=== PATIENT | female | born 1985 | race American Indian/Alaskan Native ===

== ENCOUNTER 2018-06-16 14:26 | Emergency (ER) | payer OTHER, SELFPAY ==
[2018-06-16 14:35] VITALS: BP 120/82; PULSE 85; RESP 20; TEMP 36.7; O2SAT 98
--- NOTE | 2018-06-16 14:38 | DI.RAD.S_ITS ---
PROCEDURE: XR CHEST 2V INDICATIONS: chest pain TECHNIQUE: 2 views of the chest were acquired. COMPARISON: [facility], , CHEST 1 VIEW, 11/08/2016, 17:17. FINDINGS: Surgical changes and devices: None. Lungs and pleura: No pleural effusions or pneumothorax. Lungs are clear. Mediastinum: Mediastinal contours are normal. Heart size is normal. Bones and chest wall: No suspicious bony abnormalities. Soft tissues appear unremarkable. IMPRESSION: No acute cardiopulmonary pathology. Dictated by: Gianluca Workman M.D. on 06/16/2018 at 15:21 Approved by: Gianluca Workman M.D. on 06/16/2018 at 15:21
[2018-06-16 14:57] LABS: Add Manual Diff / Slide Review NO; Basophils Percent Auto 0.5 % (0-2); Eosinophils Percent Auto 1.5 % (2-4); Hematocrit 38.3 % (36-46); Hemoglobin 13.3 g/dL (12.0-16.0); Lymphocytes Percent Auto 25.5 % (25-40); Mean Corpuscular HGB Conc 34.7 % (30-36); Mean Corpuscular Hemoglobin 30.2 PG (26-34); Monocytes Percent Auto 6.6 % (3-14); Neutrophils Absolute Auto 4100 /uL (3000-5900); Neutrophils Percent Auto 65.9 % (50-75); Platelet Count 183 X10^3/uL (150-400); Red Cell Distribution Width 11.9 % (11.6-14.8); White Blood Cell Count 6.2 X10^3/uL (4.5-11.0)
[2018-06-16 15:12] LABS: Alanine Aminotransferase 39 IU/L (9-52); Albumin 4.5 g/dL (3.5-5.0); Albumin Globulin Ratio 1.7 (1.0-2.8); Alkaline Phosphatase 61 U/L (38-126); Aspartate Aminotransferase 31 IU/L (14-36); BUN Creatinine Ratio 15.7 (6-22); Bilirubin Total 0.2 mg/dL (0.2-1.3); Blood Urea Nitrogen 11 mg/dL (7-17); Carbon Dioxide 27 mmol/L (22-32); Chloride 103 mmol/L (98-107); Estimated Glomerular Filt Rate > 60.0 mL/min (>60); Globulin 2.6 g/dL (1.7-4.1); Glucose 95 mg/dL (70-100); HEMOLYSIS < 15 (0-50); Potassium 4.3 mmol/L (3.4-5.1); Sodium 141 mmol/L (137-145); Total Protein 7.1 g/dL (6.3-8.2)
[2018-06-16 15:25] LABS: Troponin I < 0.012 ng/mL (0.01-0.034)
[2018-06-16 16:10] LABS: Amylase 86 U/L (30-110); Lipase 84 U/L (23-300)
--- NOTE | 2018-06-16 16:27 | DI.US.S_ITS ---
PROCEDURE: US ABDOMEN COMPLETE INDICATIONS: RUQ pain TECHNIQUE: Real-time scanning was performed of the abdominal and retroperitoneal organs, with image documentation. COMPARISON: None. FINDINGS: Liver: Liver is normal in size and homogeneous in echotexture. Gallbladder: The gallbladder wall measures 2 mm in diameter. No stones, sludge, pericholecystic fluid, or sonographic Kenny sign. Biliary ducts: Intrahepatic bile ducts are non-dilated. Extrahepatic bile duct caliber measures 5 mm. Normal is 6-7 mm or less in diameter, or 10 mm or less post-cholecystectomy. Pancreas: The pancreas is nonvisualized due to overlying bowel gas. Spleen: Spleen is normal in size and homogeneous in echotexture. Kidneys: Kidneys are normal in size and echotexture. Right kidney measures 9.9 cm long; left kidney measures 10.3 cm long. No hydronephrosis or nephrolithiasis. No solid masses. Aorta: Visualized aorta is normal in caliber at less than 3 cm. Iliacs: Proximal common iliac arteries are normal in caliber at less than 2.5 cm. IVC: The IVC is not visualized due to bowel gas. Miscellaneous: No free abdominal fluid. IMPRESSION: 1. No cholelithiasis or findings to suggest choledocholithiasis or acute cholecystitis. Dictated by: Irma Orellana M.D. on 06/16/2018 at 17:14 Approved by: Irma Orellana M.D. on 06/16/2018 at 17:15
[2018-06-16] MEDS: MAG HYDROX/ALUMINUM/SIMETH SUS 20 ML, LIDOCAINE VISCOUS 2% 15 ML PO (16:44)
[2018-06-16] MEDS: ONDANSETRON 4 MG ODT PO (16:45)
[2018-06-16] MEDS: PROMETHAZINE 6.25 MG/5 ML SYRUP 25 MG PO (18:10)
[2018-06-16] MEDS: PANTOPRAZOLE 20 MG TABLET PO (18:10)
--- NOTE | 2018-06-16 18:18 | PC.NURSE ---
Patient drove self in. Will take promethazine when she gets home for nausea. Patient ok with this plan. Will follow up with PCP if doesn't work for nausea.
--- NOTE | 2018-06-16 18:20 | ED.NAVMDI ---
HPI - Nausea/Vomiting/Diarrhea <MARIANNA James - Last Filed: 06/16/18 23:35> General Chief complaint: Nausea/Vomiting/Diarrhea Stated complaint: chest pains Time Seen by Provider: 06/16/18 15:41 Source: patient Mode of arrival: ambulatory Limitations: no limitations History of Present Illness HPI Narrative: Patient is 32-year-old female who presents with chief complaint of nausea and vomiting that has been going on for months but worsened over the past 3 days. She states she vomits bile in acid in the morning. She states she vomits after most meals. She states she is keeping down fluids okay, denies vomiting or diarrhea. She states she also has right upper quadrant pain is concerned about her gallbladder. She states she has had chest pain for the past 3 days that is nonexertional. She states she has a history of pericarditis, But she does not feel like she did then. She denies any fevers, chills. She states that her chest pain is not exertional, but comes and goes at rest and is associated with her abdominal pain and nausea vomiting. Related Data Home Medications Medication Instructions Recorded Confirmed conj estrog-medroxyprogest chandler 1 tab PO QDAY #0 09/03/16 [Premphase] Previous Rx's Medication Instructions Recorded promethazine 25 mg PO Q6H PRN #14 tab 06/16/18 Allergies Allergy/AdvReac Type Severity Reaction Status Date / Time morphine [MORPHINE] Allergy Mild agitated Unverified 11/26/17 12:34 clarithromycin [From BIAXIN] Allergy Unknown HIVES, Unverified 11/26/17 12:34 AGITATION ketorolac [From TORADOL] Allergy Unknown HIVES Unverified 11/26/17 12:34 metoclopramide [From REGLAN] Allergy Unknown HIVES Unverified 11/26/17 12:34 naproxen [NAPROXEN] Allergy Unknown HIVES Unverified 11/26/17 12:34 Review of Systems <MARIANNA James - Last Filed: 06/16/18 23:35> Review of Systems GENERAL: Denies chills, fatigue, malaise, fever, sweats. HEENT: Denies sinus pain, ear pain, sore throat, difficulty swallowing, dizziness. RESPIRATORY: Denies dyspnea, cough, wheezing, hemoptysis, sputum. CARDIOVASCULAR: See HPI GASTROINTESTINAL: see HPI : Denies dysuria, frequency, incontinence, hematuria, urinary retention. MUSCULOSKELETAL: denies weakness, joint pain, or bony pain SKIN: Denies rash, skin lesions, or other NEUROLOGIC: Denies weakness, headache, numbness, change in speech, confusion, seizures, incoordination. PSYCHIATRIC: No concerning psychosocial issues. 12 point review of systems is negative except for those stated above Exam <DENEEN James-BC - Last Filed: 06/16/18 23:35> Narrative Exam Narrative: GENERAL: This is a well-nourished, well-developed patient, in no acute distress HEAD: Atraumatic. Normocephalic. No temporal or scalp tenderness. EYES: Pupils equal round and reactive. Extraocular motions intact. No scleral icterus. No injection or drainage. ENT: Nose without bleeding, purulent drainage or septal hematoma. Throat without erythema, tonsillar hypertrophy or exudate. Uvula midline. Airway patent. NECK: Trachea midline. No JVD or lymphadenopathy. Supple, nontender, no meningeal signs. CARDIOVASCULAR: Regular rate and rhythm without murmurs, gallops, or rubs. RESPIRATORY: Clear to auscultation. Breath sounds equal bilaterally. No wheezes, rales, or rhonchi. no increased respiratory effort. No cough. GASTROINTESTINAL: Abdomen soft, Right upper quadrant pain to palpation, nondistended. No hepato-splenomegaly, or palpable masses. No guarding. positive Kenny sign EXTREMITIES: No clubbing, cyanosis, or edema. No joint tenderness, effusion, or edema noted. BACK: Nontender without deformity or crepitance. No flank tenderness. NEURO: AOx3. SKIN: No rash or erythema. Initial Vital Signs Initial Vital Signs: Vital Signs Temperature 98.0 F 06/16/18 14:35 Pulse Rate 85 06/16/18 14:35 Respiratory Rate 20 06/16/18 14:35 Blood Pressure 120/82 06/16/18 14:35 Pulse Oximetry 98 06/16/18 14:35 <Denise Altamirano DO - Last Filed: 06/17/18 05:59> Initial Vital Signs Initial Vital Signs: Vital Signs Temperature 98.0 F 06/16/18 14:35 Pulse Rate 85 06/16/18 14:35 Respiratory Rate 20 06/16/18 14:35 Blood Pressure 120/82 06/16/18 14:35 Pulse Oximetry 98 06/16/18 14:35 Course <DENEEN James-BC - Last Filed: 06/16/18 23:35> Course Narrative: I checked on the patient several times throughout her stay in the emergency department. After Zofran did not work, we elected for promethazine trial. I discussed at length a negative EKG, negative troponin and grossly normal lab work which she appreciates. I discussed at length follow up with primary care provider. Orders Ordered: Discontinued Medications Al Hydrox/Mg Hydrox/Simethicone 20 ml/ Lidocaine HCl 15 ml 0 ml PO NOW ONE Stop: 06/16/18 15:56 Last Admin: 06/16/18 16:44 Dose: 35 ml Ondansetron HCl (Zofran Odt) 4 mg PO NOW ONE Stop: 06/16/18 16:25 Last Admin: 06/16/18 16:45 Dose: 4 mg Ondansetron HCl (Zofran Odt) 4 mg PO NOW ONE Stop: 06/16/18 16:52 Last Admin: 06/16/18 18:11 Dose: Pantoprazole Sodium (Protonix) 20 mg PO NOW ONE Stop: 06/16/18 17:36 Last Admin: 06/16/18 18:10 Dose: 20 mg Promethazine HCl (Phenadoz) 25 mg PO NOW ONE Stop: 06/16/18 16:52 Last Admin: 06/16/18 18:10 Dose: 25 mg Vital Signs - 8 hr 06/16/18 14:35 Temperature 98.0 F Pulse Rate 85 Respiratory Rate 20 Blood Pressure [Right Arm] 120/82 Pulse Oximetry 98 <Denise Altamirano DO - Last Filed: 06/17/18 05:59> Orders Ordered: Discontinued Medications Al Hydrox/Mg Hydrox/Simethicone 20 ml/ Lidocaine HCl 15 ml 0 ml PO NOW ONE Stop: 06/16/18 15:56 Last Admin: 06/16/18 16:44 Dose: 35 ml Ondansetron HCl (Zofran Odt) 4 mg PO NOW ONE Stop: 06/16/18 16:25 Last Admin: 06/16/18 16:45 Dose: 4 mg Ondansetron HCl (Zofran Odt) 4 mg PO NOW ONE Stop: 06/16/18 16:52 Last Admin: 06/16/18 18:11 Dose: Pantoprazole Sodium (Protonix) 20 mg PO NOW ONE Stop: 06/16/18 17:36 Last Admin: 06/16/18 18:10 Dose: 20 mg Promethazine HCl (Phenadoz) 25 mg PO NOW ONE Stop: 06/16/18 16:52 Last Admin: 06/16/18 18:10 Dose: 25 mg Vital Signs - 8 hr 06/16/18 14:35 Temperature 98.0 F Pulse Rate 85 Respiratory Rate 20 Blood Pressure [Right Arm] 120/82 Pulse Oximetry 98 MDM - Nausea/Vomiting/Diarrhea <DENEEN James- - Last Filed: 06/16/18 23:35> Lab Data Result diagrams: 06/16/18 14:50 06/16/18 14:50 Lab Results 06/16/18 06/16/18 06/16/18 Range/Units 14:50 14:50 15:54 WBC 6.2 (4.5-11.0) X10^3/uL RBC 4.40 (4.0-5.2) X10^6/uL Hgb 13.3 (12.0-16.0) g/dL Hct 38.3 (36-46) % MCV 87.0 (80-100) fL MCH 30.2 (26-34) PG MCHC 34.7 (30-36) % RDW 11.9 (11.6-14.8) % Plt Count 183 (150-400) X10^3/uL Neut % (Auto) 65.9 (50-75) % Lymph % (Auto) 25.5 (25-40) % Granite % (Auto) 6.6 (3-14) % Eos % (Auto) 1.5 L (2-4) % Baso % (Auto) 0.5 (0-2) % Neut # (Auto) 4100 (4292-8514) /uL Sodium 141 (137-145) mmol/L Potassium 4.3 (3.4-5.1) mmol/L Chloride 103 (98-107) mmol/L Carbon Dioxide 27 (22-32) mmol/L BUN 11 (7-17) mg/dL Creatinine 0.70 (0.52-1.04) mg/dL Estimated GFR > 60.0 (>60) mL/min BUN/Creatinine Ratio 15.7 (6-22) Glucose 95 (70-100) mg/dL Calcium 9.0 (8.4-10.2) mg/dL Total Bilirubin 0.2 (0.2-1.3) mg/dL AST 31 (14-36) IU/L ALT 39 (9-52) IU/L Alkaline Phosphatase 61 (38-126) U/L Troponin I < 0.012 (0.01-0.034) ng/mL Total Protein 7.1 (6.3-8.2) g/dL Albumin 4.5 (3.5-5.0) g/dL Globulin 2.6 (1.7-4.1) g/dL Albumin/Globulin Ratio 1.7 (1.0-2.8) Amylase 86 (30-110) U/L Lipase 84 (23-300) U/L Point of Care Testing Test Results Negative Urine Dip Bedside Urine Glucose Negative Bedside Urine Bilirubin - Negative Bedside Urine Ketone - Negative Urine Specific [place] 1.020 Bedside Urine Occult Blood - Negative Bedside Urine pH 7.0 Bedside Urine Protein - Negative Bedside Urine Urobilinogen - Negative Bedside Urine Nitrite - Negative Bedside Urine Leukocytes - Negative Esterase Imaging Data US - abdomen: Radiologist's impression: 1 Diagnostics DATE TYPE STATUS AUTHOR Amilcar 06/16/18 16:27 Irma Orellana 06/16/18 14:38 Gianluca Workman Amy Garcia 32, F0 1985 DEP ER, ED - Main ED: [facility] 74.843kg Nausea/Vomiting/Diarrhea Search Chart morphine (MORPHINE) agitated clarithromycin (From BIAXIN) HIVES, AGITATION ketorolac (From TORADOL) HIVES metoclopramide (From REGLAN) HIVES naproxen (NAPROXEN) HIVES ONSET Today 18:[address] [address] Ultrasound Report Signed Patient: Amy Garcia MMR#: [id number] : 1985Acct:[id number] Age/Sex: 32 / FDate of Service: 06/16/18 Loc: ED Accession Number: [id number] Procedure: US abdomen complete Ordering Provider: Deysi Dinh RETORT FORKER-BC PROCEDURE: US ABDOMEN COMPLETE INDICATIONS: RUQ pain TECHNIQUE: Real-time scanning was performed of the abdominal and retroperitoneal organs, with image documentation. COMPARISON: None. FINDINGS: Liver: Liver is normal in size and homogeneous in echotexture. Gallbladder: The gallbladder wall measures 2 mm in diameter. No stones, sludge, pericholecystic fluid, or sonographic Kenny sign. Biliary ducts: Intrahepatic bile ducts are non-dilated. Extrahepatic bile duct caliber measures 5 mm. Normal is 6-7 mm or less in diameter, or 10 mm or less post-cholecystectomy. Pancreas: The pancreas is nonvisualized due to overlying bowel gas. Spleen: Spleen is normal in size and homogeneous in echotexture. Kidneys: Kidneys are normal in size and echotexture. Right kidney measures 9.9 cm long; left kidney measures 10.3 cm long. No hydronephrosis or nephrolithiasis. No solid masses. Aorta: Visualized aorta is normal in caliber at less than 3 cm. Iliacs: Proximal common iliac arteries are normal in caliber at less than 2.5 cm. IVC: The IVC is not visualized due to bowel gas. Miscellaneous: No free abdominal fluid. IMPRESSION: 1. No cholelithiasis or findings to suggest choledocholithiasis or acute cholecystitis. Dictated by: Irma Orellana M.D. on 06/16/2018 at 17:14 Approved by: Irma Orellana M.D. on 06/16/2018 at 17:15 Chest x-ray: Radiologist's impression: [address] [address] XRay Report Signed Patient: Amy Garcia [facility]#: [id number] : 1985Acct:[id number] Age/Sex: 32 / FDate of Service: 06/16/18 Loc: ED Accession Number: [id number] Procedure: XR chest 2V Ordering Provider: Marky Blackburn D.O. PROCEDURE: XR CHEST 2V INDICATIONS: chest pain TECHNIQUE: 2 views of the chest were acquired. COMPARISON: [facility], CHEST 1 VIEW, 11/08/2016, 17:17. FINDINGS: Surgical changes and devices: None. Lungs and pleura: No pleural effusions or pneumothorax. Lungs are clear. Mediastinum: Mediastinal contours are normal. Heart size is normal. Bones and chest wall: No suspicious bony abnormalities. Soft tissues appear unremarkable. IMPRESSION: No acute cardiopulmonary pathology. Dictated by: Gianluca Workman M.D. on 06/16/2018 at 15:21 Approved by: Gianluca Workman M.D. on 06/16/2018 at 15:21 ECG Data Attestation: I personally reviewed and interpreted this ECG as follows: Interpretation: Sinus rhythm. Ventricular rate 82. No ST elevation or depression. No ectopy noted. MDM Narrative Medical decision making narrative: Patient is a 32-year-old female who presents with various complaints including chest pain, nausea, vomiting, right upper quadrant pain she had a normal chest x-ray, normal abdominal ultrasound normal EKG, she also had a normal CBC, CMP and troponin. Given that her chest pain is worse when she is nauseous and vomiting, that she feels extra acid in her stomach in the etiology of her nausea and vomiting, I trialed several nausea medications as well as a GI cocktail. I discussed placing the patient on Protonix. After prescription of it, but she states she would rather get it [id number]. I discussed that we rule out surgical emergencies in acute conditions in the emergency department, but suggested a low acid, low-fat, GERD diet and follow up with primary care provider. I discussed at length return precautions to the emergency department including severe chest pain, shortness of breath or any acute concerns. She had no questions or concerns upon discharge. <Denise Altamirano, DO - Last Filed: 06/17/18 05:59> Lab Data Lab Results 06/16/18 06/16/18 06/16/18 Range/Units 14:50 14:50 15:54 WBC 6.2 (4.5-11.0) X10^3/uL RBC 4.40 (4.0-5.2) X10^6/uL Hgb 13.3 (12.0-16.0) g/dL Hct 38.3 (36-46) % MCV 87.0 (80-100) fL MCH 30.2 (26-34) PG MCHC 34.7 (30-36) % RDW 11.9 (11.6-14.8) % Plt Count 183 (150-400) X10^3/uL Neut % (Auto) 65.9 (50-75) % Lymph % (Auto) 25.5 (25-40) % Granite % (Auto) 6.6 (3-14) % Eos % (Auto) 1.5 L (2-4) % Baso % (Auto) 0.5 (0-2) % Neut # (Auto) 4100 (0527-4582) /uL Sodium 141 (137-145) mmol/L Potassium 4.3 (3.4-5.1) mmol/L Chloride 103 (98-107) mmol/L Carbon Dioxide 27 (22-32) mmol/L BUN 11 (7-17) mg/dL Creatinine 0.70 (0.52-1.04) mg/dL Estimated GFR > 60.0 (>60) mL/min BUN/Creatinine Ratio 15.7 (6-22) Glucose 95 (70-100) mg/dL Calcium 9.0 (8.4-10.2) mg/dL Total Bilirubin 0.2 (0.2-1.3) mg/dL AST 31 (14-36) IU/L ALT 39 (9-52) IU/L Alkaline Phosphatase 61 (38-126) U/L Troponin I < 0.012 (0.01-0.034) ng/mL Total Protein 7.1 (6.3-8.2) g/dL Albumin 4.5 (3.5-5.0) g/dL Globulin 2.6 (1.7-4.1) g/dL Albumin/Globulin Ratio 1.7 (1.0-2.8) Amylase 86 (30-110) U/L Lipase 84 (23-300) U/L Point of Care Testing Test Results Negative Urine Dip Bedside Urine Glucose Negative Bedside Urine Bilirubin - Negative Bedside Urine Ketone - Negative Urine Specific [place] 1.020 Bedside Urine Occult Blood - Negative Bedside Urine pH 7.0 Bedside Urine Protein - Negative Bedside Urine Urobilinogen - Negative Bedside Urine Nitrite - Negative Bedside Urine Leukocytes - Negative Esterase Discharge Plan Departure Patient Disposition: Home Clinical Impression: Nausea & vomiting, Gastroesophageal reflux disease Discharge Date/Time: 06/16/18 18:41 Interventions: ED Discharge Assessment Last Done: 06/16/18 18:40 Instructions: DI for Gastroesophageal Reflux Disease (GERD), DI for Nausea -- Adult, DI for Vomiting -- Adult Activity Restrictions/Additional Instructions: Your lab work today came back mostly normal. Please follow-up with her primary care provider. I have prescribed do a nausea medication that you can use as needed every 6 hr. This can make you sleepy. I also suggest a low acid, low-fat, no fried food diet. You can also start pain Protonix once a day for acid. Please come back to the emergency department for any acute concerns. Prescriptions: New promethazine 25 mg tablet 25 mg PO Q6H PRN (Reason: nausea and vomiting) Qty: 14 RF: 0 No Action conj estrog-medroxyprogest chandler [Premphase] 0.625 MG/5 MG tablet 1 tab PO QDAY Qty: 0 RF: 0 Referrals: Marky Jain PA-C [Primary Care Provider] - <Denise Altamirano DO - Last Filed: 06/17/18 05:59> Cosign ED Attending Glen Attestation: I was immediately available in the department for consultation. Documentation has been reviewed. I agree with assessment and plan.
--- NOTE | 2018-06-16 18:24 | ED_ITS ---
HPI - Nausea/Vomiting/Diarrhea <MARIANNA James - Last Filed: 06/16/18 23:35> General Chief complaint: Nausea/Vomiting/Diarrhea Stated complaint: chest pains Time Seen by Provider: 06/16/18 15:41 Source: patient Mode of arrival: ambulatory Limitations: no limitations History of Present Illness HPI Narrative: Patient is 32-year-old female who presents with chief complaint of nausea and vomiting that has been going on for months but worsened over the past 3 days. She states she vomits bile in acid in the morning. She states she vomits after most meals. She states she is keeping down fluids okay , denies vomiting or diarrhea. She states she also has right upper quadrant pain is concerned about her gallbladder. She states she has had chest pain for the past 3 days that is nonexertional. She states she has a history of pericarditis, But she does not feel like she did then. She denies any fevers , chills. She states that her chest pain is not exertional, but comes and goes at rest and is associated with her abdominal pain and nausea vomiting. Related Data Home Medications Medication Instructions Recorded Confirmed conj estrog-medroxyprogest chandler 1 tab PO QDAY #0 09/03/16 [Premphase] Previous Rx's Medication Instructions Recorded promethazine 25 mg PO Q6H PRN #14 tab 06/16/18 Allergies Allergy/AdvReac Type Severity Reaction Status Date / Time morphine [MORPHINE] Allergy Mild agitated Unverified 11/26/17 12:34 clarithromycin [From BIAXIN] Allergy Unknown HIVES, Unverified 11/26/17 12:34 AGITATION ketorolac [From TORADOL] Allergy Unknown HIVES Unverified 11/26/17 12:34 metoclopramide [From REGLAN] Allergy Unknown HIVES Unverified 11/26/17 12:34 naproxen [NAPROXEN] Allergy Unknown HIVES Unverified 11/26/17 12:34 Review of Systems <MARIANNA James - Last Filed: 06/16/18 23:35> Review of Systems GENERAL: Denies chills, fatigue, malaise, fever, sweats. HEENT: Denies sinus pain, ear pain, sore throat, difficulty swallowing, dizziness. RESPIRATORY: Denies dyspnea, cough, wheezing, hemoptysis, sputum. CARDIOVASCULAR: See HPI GASTROINTESTINAL: see HPI : Denies dysuria, frequency, incontinence, hematuria, urinary retention. MUSCULOSKELETAL: denies weakness, joint pain, or bony pain SKIN: Denies rash, skin lesions, or other NEUROLOGIC: Denies weakness, headache, numbness, change in speech, confusion, seizures, incoordination. PSYCHIATRIC: No concerning psychosocial issues. 12 point review of systems is negative except for those stated above Exam <DENEEN James-BC - Last Filed: 06/16/18 23:35> Narrative Exam Narrative: GENERAL: This is a well-nourished, well-developed patient, in no acute distress HEAD: Atraumatic. Normocephalic. No temporal or scalp tenderness. EYES: Pupils equal round and reactive. Extraocular motions intact. No scleral icterus. No injection or drainage. ENT: Nose without bleeding, purulent drainage or septal hematoma. Throat without erythema, tonsillar hypertrophy or exudate. Uvula midline. Airway patent. NECK: Trachea midline. No JVD or lymphadenopathy. Supple, nontender, no meningeal signs. CARDIOVASCULAR: Regular rate and rhythm without murmurs, gallops, or rubs. RESPIRATORY: Clear to auscultation. Breath sounds equal bilaterally. No wheezes , rales, or rhonchi. no increased respiratory effort. No cough. GASTROINTESTINAL: Abdomen soft, Right upper quadrant pain to palpation, nondistended. No hepato-splenomegaly, or palpable masses. No guarding. positive Kenny sign EXTREMITIES: No clubbing, cyanosis, or edema. No joint tenderness, effusion, or edema noted. BACK: Nontender without deformity or crepitance. No flank tenderness. NEURO: AOx3. SKIN: No rash or erythema. Initial Vital Signs Initial Vital Signs: Vital Signs Temperature 98.0 F 06/16/18 14:35 Pulse Rate 85 06/16/18 14:35 Respiratory Rate 20 06/16/18 14:35 Blood Pressure 120/82 06/16/18 14:35 Pulse Oximetry 98 06/16/18 14:35 <Denise Altamirano DO - Last Filed: 06/17/18 05:59> Initial Vital Signs Initial Vital Signs: Vital Signs Temperature 98.0 F 06/16/18 14:35 Pulse Rate 85 06/16/18 14:35 Respiratory Rate 20 06/16/18 14:35 Blood Pressure 120/82 06/16/18 14:35 Pulse Oximetry 98 06/16/18 14:35 Course <DENEEN James-BC - Last Filed: 06/16/18 23:35> Course Narrative: I checked on the patient several times throughout her stay in the emergency department. After Zofran did not work, we elected for promethazine trial. I discussed at length a negative EKG, negative troponin and grossly normal lab work which she appreciates. I discussed at length follow up with primary care provider. Orders Ordered: Discontinued Medications Al Hydrox/Mg Hydrox/Simethicone 20 ml/ Lidocaine HCl 15 ml 0 ml PO NOW ONE Stop: 06/16/18 15:56 Last Admin: 06/16/18 16:44 Dose: 35 ml Ondansetron HCl (Zofran Odt) 4 mg PO NOW ONE Stop: 06/16/18 16:25 Last Admin: 06/16/18 16:45 Dose: 4 mg Ondansetron HCl (Zofran Odt) 4 mg PO NOW ONE Stop: 06/16/18 16:52 Last Admin: 06/16/18 18:11 Dose: Pantoprazole Sodium (Protonix) 20 mg PO NOW ONE Stop: 06/16/18 17:36 Last Admin: 06/16/18 18:10 Dose: 20 mg Promethazine HCl (Phenadoz) 25 mg PO NOW ONE Stop: 06/16/18 16:52 Last Admin: 06/16/18 18:10 Dose: 25 mg Vital Signs - 8 hr 06/16/18 14:35 Temperature 98.0 F Pulse Rate 85 Respiratory Rate 20 Blood Pressure [Right Arm] 120/82 Pulse Oximetry 98 <Denise Altamirano DO - Last Filed: 06/17/18 05:59> Orders Ordered: Discontinued Medications Al Hydrox/Mg Hydrox/Simethicone 20 ml/ Lidocaine HCl 15 ml 0 ml PO NOW ONE Stop: 06/16/18 15:56 Last Admin: 06/16/18 16:44 Dose: 35 ml Ondansetron HCl (Zofran Odt) 4 mg PO NOW ONE Stop: 06/16/18 16:25 Last Admin: 06/16/18 16:45 Dose: 4 mg Ondansetron HCl (Zofran Odt) 4 mg PO NOW ONE Stop: 06/16/18 16:52 Last Admin: 06/16/18 18:11 Dose: Pantoprazole Sodium (Protonix) 20 mg PO NOW ONE Stop: 06/16/18 17:36 Last Admin: 06/16/18 18:10 Dose: 20 mg Promethazine HCl (Phenadoz) 25 mg PO NOW ONE Stop: 06/16/18 16:52 Last Admin: 06/16/18 18:10 Dose: 25 mg Vital Signs - 8 hr 06/16/18 14:35 Temperature 98.0 F Pulse Rate 85 Respiratory Rate 20 Blood Pressure [Right Arm] 120/82 Pulse Oximetry 98 MDM - Nausea/Vomiting/Diarrhea <DENEEN James- - Last Filed: 06/16/18 23:35> Lab Data Result diagrams: 06/16/18 14:50 06/16/18 14:50 Lab Results 06/16/18 06/16/18 06/16/18 Range/Units 14:50 14:50 15:54 WBC 6.2 (4.5-11.0) X10^3/uL RBC 4.40 (4.0-5.2) X10^6/uL Hgb 13.3 (12.0-16.0) g/dL Hct 38.3 (36-46) % MCV 87.0 (80-100) fL MCH 30.2 (26-34) PG MCHC 34.7 (30-36) % RDW 11.9 (11.6-14.8) % Plt Count 183 (150-400) X10^3/uL Neut % (Auto) 65.9 (50-75) % Lymph % (Auto) 25.5 (25-40) % [place] % (Auto) 6.6 (3-14) % Eos % (Auto) 1.5 L (2-4) % Baso % (Auto) 0.5 (0-2) % Neut # (Auto) 4100 (6397-8605) /uL Sodium 141 (137-145) mmol/L Potassium 4.3 (3.4-5.1) mmol/L Chloride 103 (98-107) mmol/L Carbon Dioxide 27 (22-32) mmol/L BUN 11 (7-17) mg/dL Creatinine 0.70 (0.52-1.04) mg/dL Estimated GFR > 60.0 (>60) mL/min BUN/Creatinine Ratio 15.7 (6-22) Glucose 95 (70-100) mg/dL Calcium 9.0 (8.4-10.2) mg/dL Total Bilirubin 0.2 (0.2-1.3) mg/dL AST 31 (14-36) IU/L ALT 39 (9-52) IU/L Alkaline Phosphatase 61 (38-126) U/L Troponin I < 0.012 (0.01-0.034) ng/mL Total Protein 7.1 (6.3-8.2) g/dL Albumin 4.5 (3.5-5.0) g/dL Globulin 2.6 (1.7-4.1) g/dL Albumin/Globulin Ratio 1.7 (1.0-2.8) Amylase 86 (30-110) U/L Lipase 84 (23-300) U/L Point of Care Testing Test Results Negative Urine Dip Bedside Urine Glucose Negative Bedside Urine Bilirubin - Negative Bedside Urine Ketone - Negative Urine Specific [place] 1.020 Bedside Urine Occult Blood - Negative Bedside Urine pH 7.0 Bedside Urine Protein - Negative Bedside Urine Urobilinogen - Negative Bedside Urine Nitrite - Negative Bedside Urine Leukocytes - Negative Esterase Imaging Data US - abdomen: Radiologist's impression: 1 Diagnostics DATE TYPE STATUS AUTHOR Amilcar 06/16/18 16:27 Irma Orellana 06/16/18 14:38 Gianluca Workman Amy Garcia 32, F0 1985 DEP ER, ED - Main ED: [facility] 74.843kg Nausea/Vomiting/Diarrhea Search Chart morphine (MORPHINE) agitated clarithromycin (From BIAXIN) HIVES, AGITATION ketorolac (From TORADOL) HIVES metoclopramide (From REGLAN) HIVES naproxen (NAPROXEN) HIVES ONSET Today 18:[address] [address] Ultrasound Report Signed Patient: Amy Garcia MMR#: [id number] : 1985Acct:[id number] Age/Sex: 32 / FDate of Service: 06/16/18 Loc: ED Accession Number: [id number] Procedure: US abdomen complete Ordering Provider: Deysi Dinh PARKING ATTENDANT-BC PROCEDURE: US ABDOMEN COMPLETE INDICATIONS: RUQ pain TECHNIQUE: Real-time scanning was performed of the abdominal and retroperitoneal organs, with image documentation. COMPARISON: None. FINDINGS: Liver: Liver is normal in size and homogeneous in echotexture. Gallbladder: The gallbladder wall measures 2 mm in diameter. No stones, sludge, pericholecystic fluid, or sonographic Kenny sign. Biliary ducts: Intrahepatic bile ducts are non-dilated. Extrahepatic bile duct caliber measures 5 mm. Normal is 6-7 mm or less in diameter, or 10 mm or less post-cholecystectomy. Pancreas: The pancreas is nonvisualized due to overlying bowel gas. Spleen: Spleen is normal in size and homogeneous in echotexture. Kidneys: Kidneys are normal in size and echotexture. Right kidney measures 9.9 cm long; left kidney measures 10.3 cm long. No hydronephrosis or nephrolithiasis. No solid masses. Aorta: Visualized aorta is normal in caliber at less than 3 cm. Iliacs: Proximal common iliac arteries are normal in caliber at less than 2.5 cm. IVC: The IVC is not visualized due to bowel gas. Miscellaneous: No free abdominal fluid. IMPRESSION: 1. No cholelithiasis or findings to suggest choledocholithiasis or acute cholecystitis. Dictated by: Irma Orellana M.D. on 06/16/2018 at 17:14 Approved by: Irma Orellana M.D. on 06/16/2018 at 17:15 Chest x-ray: Radiologist's impression: [address] [address] XRay Report Signed Patient: Amy Garcia [facility]#: [id number] : 1985Acct:[id number] Age/Sex: 32 / FDate of Service: 06/16/18 Loc: ED Accession Number: [id number] Procedure: XR chest 2V Ordering Provider: Marky Blackburn D.O. PROCEDURE: XR CHEST 2V INDICATIONS: chest pain TECHNIQUE: 2 views of the chest were acquired. COMPARISON: [facility], CHEST 1 VIEW, 11/08/2016, 17:17. FINDINGS: Surgical changes and devices: None. Lungs and pleura: No pleural effusions or pneumothorax. Lungs are clear. Mediastinum: Mediastinal contours are normal. Heart size is normal. Bones and chest wall: No suspicious bony abnormalities. Soft tissues appear unremarkable. IMPRESSION: No acute cardiopulmonary pathology. Dictated by: Gianluca Workman M.D. on 06/16/2018 at 15:21 Approved by: Gianluca Workman M.D. on 06/16/2018 at 15:21 ECG Data Attestation: I personally reviewed and interpreted this ECG as follows: Interpretation: Sinus rhythm. Ventricular rate 82. No ST elevation or depression. No ectopy noted. MDM Narrative Medical decision making narrative: Patient is a 32-year-old female who presents with various complaints including chest pain, nausea, vomiting, right upper quadrant pain she had a normal chest x-ray, normal abdominal ultrasound normal EKG, she also had a normal CBC, CMP and troponin. Given that her chest pain is worse when she is nauseous and vomiting, that she feels extra acid in her stomach in the etiology of her nausea and vomiting, I trialed several nausea medications as well as a GI cocktail. I discussed placing the patient on Protonix. After prescription of it, but she states she would rather get it [id number]. I discussed that we rule out surgical emergencies in acute conditions in the emergency department, but suggested a low acid, low-fat, GERD diet and follow up with primary care provider. I discussed at length return precautions to the emergency department including severe chest pain, shortness of breath or any acute concerns. She had no questions or concerns upon discharge. <Denise Altamirano, DO - Last Filed: 06/17/18 05:59> Lab Data Lab Results 06/16/18 06/16/18 06/16/18 Range/Units 14:50 14:50 15:54 WBC 6.2 (4.5-11.0) X10^3/uL RBC 4.40 (4.0-5.2) X10^6/uL Hgb 13.3 (12.0-16.0) g/dL Hct 38.3 (36-46) % MCV 87.0 (80-100) fL MCH 30.2 (26-34) PG MCHC 34.7 (30-36) % RDW 11.9 (11.6-14.8) % Plt Count 183 (150-400) X10^3/uL Neut % (Auto) 65.9 (50-75) % Lymph % (Auto) 25.5 (25-40) % [place] % (Auto) 6.6 (3-14) % Eos % (Auto) 1.5 L (2-4) % Baso % (Auto) 0.5 (0-2) % Neut # (Auto) 4100 (5684-8035) /uL Sodium 141 (137-145) mmol/L Potassium 4.3 (3.4-5.1) mmol/L Chloride 103 (98-107) mmol/L Carbon Dioxide 27 (22-32) mmol/L BUN 11 (7-17) mg/dL Creatinine 0.70 (0.52-1.04) mg/dL Estimated GFR > 60.0 (>60) mL/min BUN/Creatinine Ratio 15.7 (6-22) Glucose 95 (70-100) mg/dL Calcium 9.0 (8.4-10.2) mg/dL Total Bilirubin 0.2 (0.2-1.3) mg/dL AST 31 (14-36) IU/L ALT 39 (9-52) IU/L Alkaline Phosphatase 61 (38-126) U/L Troponin I < 0.012 (0.01-0.034) ng/mL Total Protein 7.1 (6.3-8.2) g/dL Albumin 4.5 (3.5-5.0) g/dL Globulin 2.6 (1.7-4.1) g/dL Albumin/Globulin Ratio 1.7 (1.0-2.8) Amylase 86 (30-110) U/L Lipase 84 (23-300) U/L Point of Care Testing Test Results Negative Urine Dip Bedside Urine Glucose Negative Bedside Urine Bilirubin - Negative Bedside Urine Ketone - Negative Urine Specific [place] 1.020 Bedside Urine Occult Blood - Negative Bedside Urine pH 7.0 Bedside Urine Protein - Negative Bedside Urine Urobilinogen - Negative Bedside Urine Nitrite - Negative Bedside Urine Leukocytes - Negative Esterase Discharge Plan Departure Patient Disposition: Home Clinical Impression: Nausea & vomiting, Gastroesophageal reflux disease Discharge Date/Time: 06/16/18 18:41 Interventions: ED Discharge Assessment Last Done: 06/16/18 18:40 Instructions: DI for Gastroesophageal Reflux Disease (GERD), DI for Nausea -- Adult, DI for Vomiting -- Adult Activity Restrictions/Additional Instructions: Your lab work today came back mostly normal. Please follow-up with her primary care provider. I have prescribed do a nausea medication that you can use as needed every 6 hr. This can make you sleepy. I also suggest a low acid , low-fat, no fried food diet. You can also start pain Protonix once a day for acid. Please come back to the emergency department for any acute concerns. Prescriptions: New promethazine 25 mg tablet 25 mg PO Q6H PRN (Reason: nausea and vomiting) Qty: 14 RF: 0 No Action conj estrog-medroxyprogest chandler [Premphase] 0.625 MG/5 MG tablet 1 tab PO QDAY Qty: 0 RF: 0 Referrals: Marky Jain PA-C [Primary Care Provider] - <Denise Altamirano DO - Last Filed: 06/17/18 05:59> Cosign ED Attending [place] Attestation: I was immediately available in the department for consultation. Documentation has been reviewed. I agree with assessment and plan.
== END 2018-06-16 18:41 | disposition home or self-care (01) ==
PROVIDERS: Emergency Medicine; Emergency Provider Nurse Practitioner Family; PCP Physician Assistant
DX: K21.9 Gastro-esophageal reflux disease without esophagitis (principal); R11.2 Nausea with vomiting, unspecified; R07.89 Other chest pain
CPT/HCPCS: 71046; 76700; 80053; 81003; 81025; 82150; 83690; 84484; 85025; 93005; 99282; 99285